=== PATIENT | male | born 1985 | race Caucasian/White ===

== ENCOUNTER 2025-09-06 18:54 | Emergency (ER) | payer SELFPAY ==
[2025-09-06 18:59] VITALS: BP 136/88; PULSE 75; RESP 18; TEMP 35.9
--- NOTE | 2025-09-06 19:15 | DI.CT_ITS ---
Exam(s) CT THORACIC LUMBAR SPINE WO EXAM: CT THORACIC LUMBAR SPINE WO CLINICAL HISTORY: fall, low back pain. TECHNIQUE: Imaging Protocol: Axial, coronal and sagittal images were reconstructed utilizing bone and soft tissue algorithm. COMPARISON: No exams were available for comparison FINDINGS: Thoracic spine: Bones: No acute fractures are seen. The alignment of the spine is normal including the cervicothoracic junction. No significant degenerative changes. Soft tissues: The soft tissues of the chest are unremarkable. No large disk herniations are identified. Lumbar spine: Bones: No acute fracture is identified. There is bilateral L5 spondylolysis which appears old. No significant facet degenerative changes are present. Alignment: Normal. Soft tissues: There is mild narrowing of the L4-5 disc space. There is mild disc bulging. There is no large disc herniation. No evidence of central canal stenosis. No paraspinal hematoma. IMPRESSION: No acute abnormality of the thoracic or lumbar spine. 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 No significant spondylolisthesis. Mild loss of disc height at L4-5 and mild disc bulging. The preliminary [facility] report was reviewed. RADIATION DOSE DELIVERED: Total DLP DATA REPOSITORY: All CT scans at this facility are submitted to the National Radiology Data Registry (NRDR) Dose Index Registry (DIR) with the [employer] ([employer]). RADIATION OPTIMIZATION: All CT scans at this facility use at least one of these dose optimization techniques: automated exposure control; mA and/or kV adjustment per patient size (includes targeted exams where dose is matched to clinical indication); or iterative reconstruction.
--- NOTE | 2025-09-06 19:15 | DI.CT_ITS ---
Exam(s) CT PELVIC WO EXAM: CT PELVIC WO CLINICAL HISTORY: L. hip pain after fall. TECHNIQUE: Imaging Protocol: Axial computed tomography images with coronal and sagittal reformatted images were created and reviewed. CONTRAST MATERIAL: Oral: no COMPARISON: CT CT THORACIC LUMBAR SPINE WO from 09/06/2025 FINDINGS: Bladder: Symmetric distention, no gross wall thickening. Bowel: No obstruction or bowel wall thickening. Peritoneal cavity: No ascites, collection or mesenteric inflammatory response. Reproductive: Unremarkable. Bones: No acute fracture. Bilateral L5 spondylolysis which appears old. No significant spondylolisthesis. Soft tissues: Unremarkable. IMPRESSION: No acute abnormality. Bilateral L5 spondylolysis appears old. The preliminary [facility] report was reviewed. RADIATION DOSE DELIVERED: Total DLP DATA REPOSITORY: All CT scans at this facility are submitted to the National Radiology Data Registry (NRDR) Dose Index Registry (DIR) with the [employer] ([employer]). RADIATION OPTIMIZATION: All CT scans at this facility use at least one of these dose optimization techniques: automated exposure control; mA and/or kV adjustment per patient size (includes targeted exams where dose is matched to clinical indication); or iterative reconstruction.
--- NOTE | 2025-09-06 19:24 | W.ED.GENAD ---
Discharge Plan Disposition Patient Disposition: Home Condition: Stable Discharge Details Clinical Impression: Contusion of left hip, Injury of lower back Primary Care Provider: Rubi Fernandez ED Provider: Kimi Benítez Home Meds and New Rx's Prescriptions: No Action No Known Home Meds Discharge Instructions Instructions: Acute Pain, Adult (DC) Additional Instructions: You were seen in the emergency department today for evaluation of injury sustained after a fall. In our department he had a full physical examination performed, and had CT imaging of your back and hips done that did not show any fractures or dislocations or other traumatic injuries. You likely have bad bruising and sprain/strains after your fall, you did have some evidence of some wewz-aol-mzcc type changes in your lower back, and I do recommend that you continue to use topical Lidoderm, whether this spray or the patch which you can purchase [id number] at the pharmacy. Please use therapeutic dosing of Tylenol (acetaminophen) & Advil (ibuprofen) in an alternating fashion as follows: Take 1000mg of Tylenol every 6 hours without missing doses- that is 4 times per day. Skilled Nursing in between the Tylenol doses, take 600mg of Advil also on a 6 hour schedule, that is also 4 times per day. With this strategy, you will be taking something for fever/pain as often as every 3 hours. The daily maximum dosing of Tylenol is 4000mg, and the daily maximum dosing of Advil is 2400mg. Please note that some common cold medications & prescription pain medications may contain acetaminophen and you need to read OTC drug labels and factor that in to maximum daily doses. Please follow-up with your primary care provider in the next few days to discuss this visit and any symptoms that change, worsen, or persist. Thank you for allowing us to be part of your care. Stand Alone Forms: Portal Information HPI General Mode of arrival: wheelchair. Date/Time Provider Initiated Documentation: 09/06/25 18:55. Limitations to Documentation: no limitations. Information obtained by: patient, family and old records reviewed. HPI Narrative: This is a 40-year-old male patient with a history of M EN 1 presenting for evaluation after a fall. The patient reports that he was walking down some steps and slipped on the snow, went down approximately 3 steps and landed on his left hip and lower back. He reports that the pain that he experienced when attempting to bear weight following this incident was so severe that he lost consciousness briefly, does not believe that he struck his head, states that he does not take blood thinning medications. The patient has not been able to ambulate since, though he denies numbness, tingling, or weakness distal to this injury, and has not had any bowel or bladder incontinence. He reports that prior to this event he was in his normal state of health, has not taken any medications for management of his pain, incident occurred approximately 1 hour prior to arrival at our facility. Related Data Home Medications ?Medication ?Instructions ?Recorded ?Confirmed Unknown [No Known Home Meds] 09/06/25 09/06/25 Allergies Allergy/AdvReac Type Severity Reaction Status Date / Time No Known Allergies Allergy Unverified 09/06/25 19:47 General Stated Complaint: Fall/Non TraumaCriteria MARISSA: 3 Exam Narrative Exam Narrative: Gen: Awake and alert, in no apparent distress HEENT: Non-icteric sclera, PERRL, scalp atraumatic Neck: Supple, no C-spine tenderness or step-offs Lungs: No apparent respiratory distress, normal respiratory effort. CV: Appears well perfused, heart with regular rate and rhythm, strong distal pulses Abdomen: Non-distended, soft, nontender, without rigidity, rebound, or guarding MSK: Moves 4 extremities without apparent limitation in ROM with the exception of the left lower extremity, which is painful with movement. The patient is endorsing lateral left hip pain that radiates around the back into his low back, no overlying skin changes noted. No T spine tenderness, the patient does have tenderness overlying the L-spine without step-offs. With the exception of the left hip pain the lower extremities are atraumatic and CSM's are intact and symmetrical distal to the injury Skin: Visualized skin without rashes, cyanosis. Neuro: Preserved strength and sensation, no facial asymmetry. Speaks in full, clear sentences. Psych: Appropriate for situation. Course Vital Signs Vital signs: Vital Signs Temperature 35.9 C L 09/06/25 18:59 Pulse 75 09/06/25 18:59 Respiratory Rate 18 09/06/25 18:59 Blood Pressure 136/88 09/06/25 18:59 Temperature 35.9 C L 09/06/25 18:59 Temperature Source Oral 09/06/25 18:59 Pulse 75 09/06/25 18:59 Respiratory Rate 18 09/06/25 18:59 Blood Pressure 136/88 09/06/25 18:59 Oxygen Delivery Method Room Air 09/06/25 18:59 Oxygen Flow Rate 0 09/06/25 18:59 Medical Decision Making This is a 40-year-old male patient presenting for evaluation after a fall. My differential includes but is not limited to traumatic injuries including hip fracture, dislocation, spinal injury, spinal nerve root compression, lumbar disc disease, spinal stenosis, contusion, sprain/strain. The patient's loss of consciousness after this event could certainly have been vasovagal in the setting of pain, though I also considered intracranial injuries including hemorrhage, skull fracture. No neurodeficits at this time to suggest spinal cord injury, and this injury was mechanical and not preceded by any dizziness or syncope, chest pain, or other symptoms to suggest a medical abnormality. 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 For this reason we will start with Tylenol, intramuscular Toradol, and a Lidoderm patch. I will obtain a CT of the T/L-spine, and the pelvis to evaluate for bony injury. I do not see an indication at this time to proceed with blood work. -I reviewed the patient's imaging, as well as the radiology reports. There is no evidence for acute fracture or traumatic injury of the T/L-spine nor the pelvis. The patient does have bilateral pars interarticularis defects at the L5/S1 level with no significant narrowing of the spinal canal or neural foramina, when the patient was updated about this finding he states that he has well-known [id number] changes in that area, and this likely represents a chronic finding. I counseled the patient on conservative pain management, including Tylenol and ibuprofen as well as Lidoderm. At this time, the patient has had a full medical evaluation and is safe for discharge to home. They are hemodynamically stable, ambulatory, and tolerating PO. They are understanding of the follow-up plan and return precautions. They left our facility without incident. Kimi Benítez MD [facility] All Active Problems (Updated 09/06/25 @ 20:56 by Kimi Benítez MD) Injury of lower back (Acute) Contusion of left hip (Acute) Social History Smoking risk assessment performed?: No
[2025-09-06] MEDS: Acetaminophen 500 MG TAB 1000 MG PO (19:31)
[2025-09-06] MEDS: Lidocaine 5% Patch 1 PATCH TP (19:31)
--- NOTE | 2025-09-06 20:47 | DI.[facility]_ITS ---
PROCEDURE INFORMATION: Exam: CT Thoracic Spine Without Contrast Exam date and time: 09/06/2025 7:53 PM Age: 40 years old Clinical indication: Low back pain; Pain in thoracic spine; Back pain after fall TECHNIQUE: Imaging protocol: Computed tomography of the thoracic spine without contrast. COMPARISON: No relevant prior studies available. FINDINGS: Bones/joints: No acute fracture. Normal alignment. No significant disc bulge or herniation. No severe spinal canal stenosis. No significant neural foraminal narrowing. Soft tissues: Unremarkable. IMPRESSION: No acute thoracic spine fracture. PROCEDURE INFORMATION: Exam: CT Lumbar Spine Without Contrast Exam date and time: 09/06/2025 7:53 PM Age: 40 years old Clinical indication: Low back pain; Pain in thoracic spine; Back pain after fall TECHNIQUE: Imaging protocol: Computed tomography of the lumbar spine without contrast. COMPARISON: CT PELVIC WO 09/06/2025 7:53 PM FINDINGS: Bones/joints: No acute fracture. Bilateral pars interarticularis defects are seen in the L5 vertebral body with associated grade 1 anterolisthesis of L5 on S1. No significant disc bulge or herniation. No severe spinal canal stenosis. No significant neural foraminal narrowing. Soft tissues: Unremarkable. IMPRESSION: No acute lumbar spine fracture. Dictated and Authenticated by: Ying Cruz MD. Orderin [facility] Ernesto Bolden MD
--- NOTE | 2025-09-06 20:49 | DI.[facility]_ITS ---
PROCEDURE INFORMATION: Exam: CT Pelvis Without Contrast, Skeleton Exam date and time: 09/06/2025 7:53 PM Age: 40 years old Clinical indication: Pain and injury or trauma; Blunt trauma (contusions or hematomas); Left hip; L hip pain after fall TECHNIQUE: Imaging protocol: Computed tomography of the pelvis without contrast. Exam focused on the skeleton. COMPARISON: CT THORACIC LUMBAR SPINE WO 09/06/2025 7:53 PM FINDINGS: Bones/joints: Unremarkable. No acute fracture. No dislocation. Soft tissues: Unremarkable. IMPRESSION: No acute findings. Dictated and Authenticated by: Ying Cruz MD. Orderin [facility] Ernesto Bolden MD
[2025-09-06] MEDS: Ketorolac 30 MG/ML VIAL IM (21:05)
== END 2025-09-06 20:56 | disposition home or self-care (01) ==
LOC: ER 21:09
PROVIDERS: Emergency Provider Emergency Medicine
DX: S70.02XA Contusion of left hip, initial encounter (principal); M54.50 Low back pain, unspecified; W01.0XXA Fall on same level from slipping, tripping and stumbling without subsequent striking against object, initial encounter
CPT/HCPCS: 99283; 99284; 96372; 72128; 72131; 72192; J1885